=== PATIENT | female | born 1975 | race Hispanic/Latino ===

== ENCOUNTER → 2022-06-28 | Outpatient (CLI) | payer BC ==
[2022-06-28 08:08] LABS: BASOPHILS % (AUTO) 1.1 % (0.0-5.0); EOSINOPHILS % (AUTO) 3.4 % (0.0-8.0); HEMATOCRIT 36.3 % (36-48); LYMPHOCYTES % (AUTO) 24.1 % (21.0-51.0); MEAN CORPUSCULAR HEMOGLOBIN 32.7 pg (27.0-33.0); MEAN CORPUSCULAR HGB CONC 31.7 g/dL (32.0-36.0); MEAN CORPUSCULAR VOLUME 103.1 fL (79-99); MONOCYTES % (AUTO) 6.6 % (3.0-13.0); NEUTROPHILS % (AUTO) 64.5 % (40.0-77.0); PLATELET COUNT (AUTO) 297 K/uL (130-400); RED BLOOD CELL COUNT(AUTO) 3.52 MIL/uL (4.00-5.50); RED CELL DISTRIBUTION WIDTH 13.5 % (11.0-15.5); WHITE BLOOD COUNT (AUTO) 7.3 K/uL (4.8-10.8)
[2022-06-28 08:19] LABS: % IRON SATURATION 18.9 % (22-44)
[2022-06-28 08:23] LABS: HEMOGLOBIN A1C 4.8 % (4.0-6.0)
[2022-06-28 08:52] LABS: ALBUMIN 3.4 g/dL (3.5-5.0); CREATININE 0.8 mg/dL (0.5-1.5); POTASSIUM 3.9 mmol/L (3.5-5.1); THYROID STIMULATING HORMONE 1.4 uIU/mL (0.36-3.74); TOTAL PROTEIN, SERUM 7.7 g/dL (6.0-8.3)
== END | disposition home or self-care (01) ==
LOC: RAH 07:23
PROVIDERS: ATTEND Surgery
DX: K22.89 Other specified disease of esophagus (principal); R13.10 Dysphagia, unspecified; Z93.1 Gastrostomy status; E46 Unspecified protein-calorie malnutrition
CPT/HCPCS: 36415; 74240; 80053; 80061; 82306; 82607; 82728; 82746; 83036; 83540; 83550; 84436; 84443; 84590; 85025

== ENCOUNTER → 2022-07-12 | Outpatient (CLI) | payer BC | END | disposition home or self-care (01) | LOC: RAH 07:05 → EDUNIT# 07:30 | PROVIDERS: ATTEND Surgery | DX: R13.10 Dysphagia, unspecified (principal); M48.00 Spinal stenosis, site unspecified | CPT/HCPCS: 78264; A9541 ==